=== PATIENT | male | born 1935 | race Caucasian/White ===

== ENCOUNTER 2018-09-08 20:20 | Emergency (ER) | payer MEDICARE ==
[~2018-09-08] VITALS: Ht 172.7 cm; Wt 79.4 kg
[~2018-09-08 20:20] MED LIST: ASPI-1718 PO; ISOS10TA9 PO; TAMS0.4C96 PO
[2018-09-08 20:23] VITALS: BP 164/98
[2018-09-08] MEDS ORDERED: NACL 0.9% 1,000 ML IV ONE (20:40)
[2018-09-08] MEDS ORDERED: MORPHINE SULFATE 4 MG/ML SYR IVP ONE ×2 (20:40→22:30)
[2018-09-08] MEDS ORDERED: ONDANSETRON 4 MG/2 ML VIAL IVP ONE ×2 (20:40→22:30)
--- NOTE | 2018-09-08 20:47 | NUR ---
PT TAKEN TO CT
--- NOTE | 2018-09-08 20:47 | NUR ---
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 STATES HE TOOK 3 UNKNOWN DIFFERENT PRESCRIBED PAIN MEDICATIONS. VSS, PUPILS EQUAL 2MM. STATES NO OTHER SYMPTOMS AT THIS TIME.
--- NOTE | 2018-09-08 20:49 | NUR ---
PATIENT TAKEN TO CT IN [facility]
--- NOTE | 2018-09-08 21:00 | NUR ---
PT RETURNED FROM CT, BACK IN ER BED 9
[2018-09-08 21:23] LABS: BASOPHILS % (AUTO) 0.5 % (0.0-2.0); EOSINOPHILS # (AUTO) 0.1 K/uL (0-0.4); EOSINOPHILS % (AUTO) 0.5 % (0.0-4.0); HEMATOCRIT 57.5 % (36-52); HEMOGLOBIN 18.9 g/dL (12.0-18.0); LYMPHOCYTES # (AUTO) 1.2 K/uL (2.0-11.5); LYMPHOCYTES % (AUTO) 12.1 % (20.5-51.1); MEAN CORPUSCULAR HEMOGLOBIN 30 pg (27-31); MEAN CORPUSCULAR HGB CONC 33 g/dL (33-37); MEAN CORPUSCULAR VOLUME 90.1 fL (80-94); MONOCYTES # (AUTO) 0.8 K/uL (0.8-1.0); MONOCYTES % (AUTO) 8.4 % (1.7-9.3); NEUTROPHILS # (AUTO) 7.6 K/uL (1.8-7.7); NEUTROPHILS % (AUTO) 78.5 % (42.2-75.2); PLATELET COUNT (AUTO) 226 K/uL (140-450); RED BLOOD CELL COUNT(AUTO) 6.38 MIL/uL (4.20-6.10); WHITE BLOOD COUNT (AUTO) 9.6 K/uL (4.8-10.8)
[2018-09-08 21:38] LABS: ANION GAP 14.7 (8-16); CARBON DIOXIDE 26.7 mmol/L (21-32); CHLORIDE 103 mmol/L (98-107); CREATININE 0.9 mg/dL (0.7-1.3); GLUCOSE 98 mg/dL (74-106); POTASSIUM 4.4 mmol/L (3.5-5.1); SODIUM SERUM 140 mmol/L (136-145); UREA NITROGEN, BLOOD 26 mg/dL (7-18)
[2018-09-08 21:40] LABS: PROTHROMBIN TIME 11.2 secs (10.8-13.4)
[2018-09-08 21:45] LABS: ALBUMIN 3.6 g/dL (3.4-5.0); ASPARTATE AMINOTRANSFERASE 33 U/L (15-37); LIPASE 154 U/L (73-393); TOTAL BILIRUBIN 1.1 mg/dL (0.0-1.0)
--- NOTE | 2018-09-08 21:56 | NUR ---
FAMILY AT BEDSIDE.
--- NOTE | 2018-09-08 22:13 | NUR ---
DR WEIR AT BEDSIDE.
--- NOTE | 2018-09-08 22:18 | NUR ---
DR WEIR INFORMED ABOUT BP 185/104.
[2018-09-08 22:32] LABS: APPEARANCE,URINE CLEAR (CLEAR); BILIRUBIN,URINE NEGATIVE (NEGATIVE); BLOOD, URINE 2+ (NEGATIVE); COLOR,URINE DARK YELLOW (YELLOW); LEUKOCYTE ESTERASE ,URINE TRACE (NEGATIVE); NITRITE, URINE POSITIVE (NEGATIVE); PH,URINE 5.5 (5.0-9.0); UGLUCOSE NEGATIVE (NEGATIVE)
[2018-09-08 22:49] LABS: RBC,URINE 0-5 /HPF (0-5); WBC,URINE 20-60 /HPF (0-5)
--- NOTE | 2018-09-08 22:50 | NUR ---
PATIENT TAKEN IN [facility] TO CT.
--- NOTE | 2018-09-08 23:06 | NUR ---
PT BACK FROM CT
--- NOTE | 2018-09-08 23:29 | NUR ---
lab at bedside. Addendum: 09/08/18 at 2330 by RAJIV will wait till cultures are drawn to start abx as ordered.
[2018-09-08] MEDS ORDERED: cefTRIAXone 1,000 MG VIAL ONE (23:42)
--- NOTE | 2018-09-09 00:05 | NUR ---
PATIENT STATES NO PAIN AT THIS TIME. NO NEW NEEDS STATED.
--- NOTE | 2018-09-09 01:50 | NUR ---
EMT AT BEDSIDE, PREFORMING EKG.
--- NOTE | 2018-09-09 02:18 | NUR ---
REPORT GIVEN TO ANTHONY AT [facility].
[2018-09-09] MEDS ORDERED: KETOROLAC 30 MG/ML VIAL IVP ONE (02:20)
[2018-09-09 02:25] VITALS: BP 165/89
--- NOTE | 2018-09-09 02:25 | NUR ---
[facility] TRANSPORTED PATIENT TO [facility] VIA AMBULANCE GURNEY. PATIENT VSS UPON DEPARTURE. FAMILY AWARE OF TRANSFER. TRANSFER PAPERWORK SIGNED.
== END 2018-09-09 02:25 | disposition short-term general hospital (02) ==
LOC: MED 20:20
DX: S32.010A Wedge compression fracture of first lumbar vertebra, initial encounter for closed fracture (principal); N39.0 Urinary tract infection, site not specified; W19.XXXA Unspecified fall, initial encounter; Y93.89 Activity, other specified; Y92.89 Other specified places as the place of occurrence of the external cause; Y99.8 Other external cause status; F03.90 Unspecified dementia, unspecified severity, without behavioral disturbance, psychotic disturbance, mood disturbance, and anxiety; Z79.82 Long term (current) use of aspirin; Z79.899 Other long term (current) drug therapy; Z85.038 Personal history of other malignant neoplasm of large intestine; Z85.048 Personal history of other malignant neoplasm of rectum, rectosigmoid junction, and anus
CPT/HCPCS: 36415; 70450; 72125; 72131; 74176; 80053; 81001; 83605; 83690; 84484; 85025; 85610; 85730; 87040; 87086; 87186; 93005; 96365; 96375; 96376; 99285; J0696; J1885; J2270; J2405; J7030; 99284